=== PATIENT | male | born 1980 ===

== ENCOUNTER 2018-02-10 10:22 | Emergency (ER) | payer SELFPAY ==
[2018-02-10 10:30] VITALS: BP 113/73; PULSE 80; RESP 18; TEMP 97.6; O2SAT 96
[2018-02-10] MEDS ORDERED: Naproxen 550 mg Tab PO STA (10:58)
--- NOTE | 2018-02-10 10:59 | C.PDOC ---
History Of Present Illness 38 y/o male presents to ED with complaints of diffuse red rash to arms and legs for 2 days. Patient reports she recently had body aches, runny nose which is improving. Patient denies itching, sob, tongue swelling, lip swelling or any other complaints at this time. Time Seen by Provider: 02/10/18 10:35 Chief Complaint (Nursing): Abnormal Skin Integrity History Per: Patient History/Exam Limitations: no limitations Onset/Duration Of Symptoms: Days Current Symptoms Are (Timing): Still Present Past Medical History Reviewed: Historical Data, Nursing Documentation, Vital Signs Vital Signs: Last Vital Signs Temp 97.6 F 02/10/18 10:27 Pulse 80 02/10/18 10:27 Resp 18 02/10/18 10:27 BP 113/73 02/10/18 10:27 Pulse Ox 96 02/10/18 10:59 - Medical History PMH: No Chronic Diseases Surgical History: No Surg Hx Family History: States: No Known Family Hx - Social History Hx Alcohol Use: Yes Hx Substance Use: No - Immunization History Hx Tetanus Toxoid Vaccination: No Hx Influenza Vaccination: No Hx Pneumococcal Vaccination: No Review Of Systems Except As Marked, All Systems Reviewed And Found Negative. Skin: Positive for: Rash Physical Exam - Physical Exam Appears: Non-toxic, No Acute Distress Skin: Warm, Dry, Rash (Maculopapular rash to bilateral arms and legs. Sparing arms. Non vesicular. +blanching) Head: Atraumatic, Normacephalic Eye(s): bilateral: Normal Inspection Oral Mucosa: Moist Tongue: Normal Appearing, No Swelling Lips: Normal Appearing, No Swelling Throat: Normal, No Erythema, No Exudate Cardiovascular: Rhythm Regular Respiratory: Normal Breath Sounds, No Rales, No Rhonchi, No Wheezing Extremity: Normal ROM, Capillary Refill (<2 seconds) Neurological/Psych: Oriented x3, Normal Speech ED Course And Treatment O2 Sat by Pulse Oximetry: 96 (RA) Pulse Ox Interpretation: Normal Progress Note: Naproxen Administered Disposition Counseled Patient/Family Regarding: Diagnosis, Need For Followup, Rx Given - Disposition Referrals: [facility] [Outside] Disposition: HOME/ ROUTINE Disposition Time: 11:00 Condition: STABLE Additional Instructions: FOLLOW UP WITH YOUR DOCTOR IN 1-2 DAYS USE MEDICATIONS NEEDED RETURN TO EMERGENCY ROOM IF SYMPTOMS WORSEN SEGUIMIENTO CON MALIK MDICO EN 1-2 LYNCH USE MEDICAMENTOS SEGN SEA NECESARIO REGRESE AL ADRIAN DE EMERGENCIA SI LOS SNTOMAS EMPEORAN Prescriptions: Naproxen 375 mg PO BID PRN #20 tablet PRN Reason: pain Instructions: Viral Syndrome (DC), Viral Exanthem (DC) Forms: [facility] (Kinyarwanda) Print Language: VENEZ[place] - Clinical Impression Clinical Impression: Viral exanthem, Viral syndrome - Scribe Statement The provider has reviewed the documentation as recorded by the Scribnani Bolden All medical record entries made by the Scribe were at my direction and personally dictated by me. I have reviewed the chart and agree that the record accurately reflects my personal performance of the history, physical exam, medical decision making, and the department course for this patient. I have also personally directed, reviewed, and agree with the discharge instructions and disposition.
== END 2018-02-10 11:11 | disposition home or self-care (01) ==
LOC: C.ER 10:22
DX: B09 Unspecified viral infection characterized by skin and mucous membrane lesions (principal)